=== PATIENT | male | born 1945 | race Caucasian/White ===

== ENCOUNTER 2018-09-02 08:08 | Emergency (ER) | payer OTHER ==
[~2018-09-02] VITALS: Ht 177.8 cm; Wt 92.5 kg
[~2018-09-02 08:08] MED LIST: ATEN25TA PO; HYDR10SY12 PO; HYDR12.55 PO; NAPR-1009 PO; SILD25TA PO; SIMV80TA90 PO
--- NOTE | 2018-09-02 08:20 | NUR ---
BIB [facility], FOUND UNRESPONSIVE IN CAR, CPR INITIATED BY BYSTANDER, PER EMS PT IS CONFUSED EN ROUTE, AOX3 IN ED. GIVEN NARCAN IN FIELD. BG 110. DENIES CP, SOB, DIZZINESS, N/V UPON ARRIVAL IN ED. NAD NOTED. TO ER BED 9, HOOKED TO MONITOR, CHANGED TO GOWN, PROVIDED W WARM BLANKET, EDI MCINTOSH AT BEDSIDE
--- NOTE | 2018-09-02 08:25 | NUR ---
WHEELED OUT VIA [facility] FOR XRAY AND CT SCAN.
[2018-09-02] MEDS ORDERED: IV NS 0.9% 1,000 ML BAG IV ONE ×2 (08:30→09:00)
--- NOTE | 2018-09-02 08:30 | NUR ---
NS 1L BOLUS STARTED IN R AC,18G, END TIME 0930
[2018-09-02 08:40] LABS: BASOPHILS # (AUTO) 0.1 /CMM (0.0-0.2); BASOPHILS % (AUTO) 0.6 % (0.0-2.0); EOSINOPHILS % (AUTO) 1.4 % (0.0-6.0); HEMATOCRIT 43 % (39-51); HEMOGLOBIN 14.6 g/dL (13.5-17.5); LYMPHOCYTES # (AUTO) 2.1 /CMM (0.8-4.8); LYMPHOCYTES % (AUTO) 16.5 % (20.0-44.0); MEAN CORPUSCULAR HGB CONC 34 g/dl (31.0-36.0); MEAN CORPUSCULAR VOLUME 92 fL (80-96); MONOCYTES # (AUTO) 0.9 /CMM (0.1-1.30); MONOCYTES % (AUTO) 7.3 % (2.0-12.0); NEUTROPHILS # (AUTO) 9.6 /CMM (1.8-8.9); NEUTROPHILS % (AUTO) 74.2 % (43.0-81.0); PLATELET COUNT (AUTO) 239 /CMM (150-450); RED BLOOD CELL COUNT(AUTO) 4.71 MIL/uL (4.5-6.0); WHITE BLOOD COUNT (AUTO) 12.9 K/uL (4.3-11.0)
[2018-09-02 08:43] LABS: CALCIUM, SERUM 8.6 mg/dL (8.5-10.1); CARBON DIOXIDE 31 mmol/L (21-32); CHLORIDE 99 mmol/L (98-107); CREATININE 1.5 mg/dL (0.6-1.3); GLUCOSE 114 mg/dL (74-106); POTASSIUM 4.3 mmol/L (3.5-5.1); SODIUM SERUM 138 mmol/L (136-145); UREA NITROGEN, BLOOD 24 mg/dL (7-18)
[2018-09-02 08:49] LABS: ALANINE AMINOTRANSFERASE 30 U/L (12-78); ALBUMIN 3.4 g/dL (3.4-5.0); ALCOHOL, BLOOD 63 mg/dL (0-0); ALKALINE PHOSPHATASE 60 U/L (46-116); ASPARTATE AMINOTRANSFERASE 16 U/L (15-37); BILIRUBIN,DIRECT 0.1 mg/dL (0.0-0.2); BILIRUBIN,TOTAL 0.6 mg/dL (0.2-1.0); TOTAL PROTEIN, SERUM 6.2 g/dL (6.4-8.2)
--- NOTE | 2018-09-02 09:15 | NUR ---
[facility]SPOKE WITH EJNNIFER HAZEL,WILL HAVE TONI SANTILLAN GIVE US A CALL
[2018-09-02 09:45] LABS: THYROID STIMULATING HORMONE 7.259 uIU/mL (0.358-3.74)
--- NOTE | 2018-09-02 10:25 | NUR ---
CHACE MUÑOZ EPRP PT ACCEPTED AT [facility]. REPORT TO: [phone] ACCEPTING MD: Katina [facility] ETA: 1100
--- NOTE | 2018-09-02 10:45 | NUR ---
REPORT GIVEN TO EDSON OF [facility]. PT SIGNED XONSENT TO BE TRABSFERRED.
[2018-09-02 11:00] VITALS: BP 102/63
--- NOTE | 2018-09-02 11:25 | NUR ---
Patient discharged TO [facility] in stable condition, TO BE TRAANSFERRED AT [facility]. Written and verbal after care instructions given. Patient verbalizes understanding of instruction. DAUGHTER AT BEDSIDE
== END 2018-09-02 11:20 ==
LOC: ER 08:11
DX: R55 Syncope and collapse (principal); E87.2 Acidosis; R41.82 Altered mental status, unspecified; G35 Multiple sclerosis; E86.1 Hypovolemia; I10 Essential (primary) hypertension; F10.10 Alcohol abuse, uncomplicated; Y90.3 Blood alcohol level of 60-79 mg/100 ml; Z98.890 Other specified postprocedural states
CPT/HCPCS: 36415; 70450; 71045; 80048; 80076; 80307; 82962; 83605; 84443; 84484; 85025; 85730; 87040 ×2; 93005; 96360; 96361; 99291; J7030 ×2; G0480

== ENCOUNTER 2022-07-08 09:20 | Emergency (ER) | payer OTHER ==
[~2022-07-08] VITALS: Ht 175.3 cm; Wt 91.2 kg
--- NOTE | 2022-07-08 10:50 | NUR ---
patient seen and assessed. hematoma back of head. stayed on bed supine position.
--- NOTE | 2022-07-08 11:13 | NUR ---
patient GCS 15
--- NOTE | 2022-07-08 11:49 | NUR ---
PATIENT AT PRESENT IS ASLEEP
[2022-07-08 12:20] VITALS: BP 130/65
== END 2022-07-08 12:23 | disposition home or self-care (01) ==
LOC: ER 09:25
DX: S00.03XA Contusion of scalp, initial encounter (principal); I10 Essential (primary) hypertension; G35 Multiple sclerosis; Z79.899 Other long term (current) drug therapy; Z60.2 Problems related to living alone; W01.0XXA Fall on same level from slipping, tripping and stumbling without subsequent striking against object, initial encounter; Y93.89 Activity, other specified; Y92.89 Other specified places as the place of occurrence of the external cause; Y99.8 Other external cause status
CPT/HCPCS: 70450-TC; 72125-TC

== ENCOUNTER 2024-10-11 17:52 | Emergency (ER) | payer OTHER ==
[~2024-10-11] VITALS: Ht 177.8 cm; Wt 73.5 kg
[2024-10-11 19:06] LABS: BASOPHILS # (AUTO) 0.1 K/uL (0.0-0.2); BASOPHILS % (AUTO) 0.7 % (0.0-2.0); EOSINOPHILS % (AUTO) 0.1 % (0.0-6.0); HEMATOCRIT 50 % (39-51); HEMOGLOBIN 17.2 g/dL (13.5-17.5); LYMPHOCYTES # (AUTO) 1.3 K/uL (0.8-4.8); LYMPHOCYTES % (AUTO) 14.2 % (20.0-44.0); MEAN CORPUSCULAR HEMOGLOBIN 30 PG (26.0-33.0); MEAN CORPUSCULAR HGB CONC 34 g/dl (31.0-36.0); MEAN CORPUSCULAR VOLUME 88 fL (80-96); MONOCYTES # (AUTO) 0.8 K/uL (0.1-1.30); NEUTROPHILS # (AUTO) 7.1 K/uL (1.8-8.9); PLATELET COUNT (AUTO) 256 K/uL (150-450); RED BLOOD CELL COUNT(AUTO) 5.66 MIL/uL (4.5-6.0); RED CELL DISTRIBUTION WIDTH 13.6 % (11.5-15.0); WHITE BLOOD COUNT (AUTO) 9.4 K/uL (4.3-11.0)
[2024-10-11 19:24] LABS: CALCIUM, SERUM 9.6 mg/dL (8.5-10.1); CREATININE 0.9 mg/dL (0.6-1.3); POTASSIUM 3.9 mmol/L (3.5-5.1)
[2024-10-11 19:31] LABS: ALBUMIN 3.6 g/dL (3.4-5.0); BILIRUBIN,TOTAL 1.3 mg/dL (0.2-1.0); TOTAL PROTEIN, SERUM 6.8 g/dL (6.4-8.2)
[2024-10-11 19:42] LABS: LYMPHOCYTES % (MANUAL) 13 % (16-48); MONOCYTES % (MANUAL) 6 % (0-11.0); NEUTROPHILS % (MANUAL) 81 (42-76)
[2024-10-11 19:43] LABS: PLATELET ESTIMATE ADEQUATE
[2024-10-11] MEDS ORDERED: hydrALAZINE HCL IV 20 MG VIAL ONE (19:50)
[2024-10-11] MEDS: hydrALAZINE HCL IV 20 MG VIAL IV ONE ×2 (19:52→22:20)
[2024-10-11] MEDS ORDERED: ONDANSETRON HCL/PF 4 MG/2 ML VIAL ONE (20:28)
[2024-10-11] MEDS ORDERED: MORPHINE SULFATE INJ 2 MG/ML DISP.SYRIN ONE (20:28)
[2024-10-11] MEDS: MORPHINE SULFATE INJ 2 MG/ML DISP.SYRIN IV ONE (20:40)
[2024-10-11] MEDS: ONDANSETRON HCL/PF - ER 4 MG/2 ML VIAL IV ONE (20:40)
[2024-10-11 23:10] VITALS: BP 182/92; TEMP 98.2; O2SAT 97
== END 2024-10-11 23:10 | disposition short-term general hospital (02) ==
LOC: ER 17:56
DX: R42 Dizziness and giddiness (principal); R53.1 Weakness; I10 Essential (primary) hypertension; G35 Multiple sclerosis; Z79.1 Long term (current) use of non-steroidal anti-inflammatories (NSAID); Z79.899 Other long term (current) drug therapy; Z60.2 Problems related to living alone
CPT/HCPCS: 99285; 96374; 96375; 93005; 96376; 85025; 82550; 36415; 80053; 84484; J0360; J2405 ×2; J2270